=== PATIENT | male | born 1990 | race Caucasian/White ===

== ENCOUNTER 2018-05-05 09:29 | Emergency (ER) | payer MEDICARE ==
[~2018-05-05] VITALS: Ht 185.4 cm; Wt 92.0 kg
[~2018-05-05 09:29] MED LIST: ATIVAN0.5 MG OR; CEPHALEXIN500 MG OR; CLARITHROMYC500 M1 OR; HYDROCORT12 EX; LORTAB 5 OR; NO HOME MEDS; XANAX0.25 MG OR; ZOFRAN ODT8 MG OR
[2018-05-05 11:16] VITALS: BP 141/87
== END 2018-05-05 11:27 | disposition home or self-care (01) ==
LOC: ED 09:29
DX: Z20.2 Contact with and (suspected) exposure to infections with a predominantly sexual mode of transmission (principal); N50.811 Right testicular pain; Z91.19 Patient's noncompliance with other medical treatment and regimen

== ENCOUNTER 2018-12-17 07:04 | Emergency (ER) | payer MEDICARE ==
[~2018-12-17] VITALS: Ht 185.4 cm; Wt 100.0 kg
[2018-12-17] MEDS ORDERED: HYDROCORT0.51 EX (07:36)
[2018-12-17] MEDS ORDERED: ANUCORT-HC25 MG RE (07:36)
[2018-12-17] MEDS ORDERED: TORADOL PO (07:36)
[2018-12-17 07:41] VITALS: BP 116/67
== END 2018-12-17 07:46 | disposition home or self-care (01) ==
LOC: ED 07:04
DX: K64.4 Residual hemorrhoidal skin tags (principal); F20.9 Schizophrenia, unspecified

== ENCOUNTER 2019-02-04 07:41 | Emergency (ER) | payer MEDICARE ==
[~2019-02-04] VITALS: Ht 182.9 cm; Wt 109.0 kg
[~2019-02-04 07:41] MED LIST changes: +ANUCORT-HC25 MG RE; +HYDROCORT0.51 EX; +KLONOPIN0.5 MG PO; +MOTRIN400 MG PO; +TORADOL PO
[2019-02-04] MEDS ORDERED: BACTRIM DS1 TAB PO (08:05)
[2019-02-04] MEDS ORDERED: OMNICEF300 M1 PO (08:05)
[2019-02-04 08:09] LABS: HEMATOCRIT 39.2 % (39.0-50.0); HEMOGLOBIN 13.3 g/dl (14.0-18.0); IMMATURE GRANULOCYTES 0.2 % (0.0-5.0); MEAN CELL VOLUME 89.7 fL CALC (80.0-100.0); MEAN CORPUSCULAR HGB 30.4 pG CALC (26.0-32.0); MEAN CORPUSCULAR HGB CONC 33.9 g/L CALC (32.0-36.0); NEUT# 7.83 thou/uL (1.82-7.42); RED BLOOD COUNT 4.37 mill/uL (4.70-6.10); RED CELL DISTRI WIDTH 12.1 % (11.5-15.5)
[2019-02-04] MEDS ORDERED: INVEGA6 MG PO (08:22)
[2019-02-04 08:26] LABS: ALBUMIN 4.3 g/dL (3.2-5.0); ALKALINE PHOSPHATASE 85 u/l (38-126); ANION GAP 12 (6-22 (CALC)); BILIRUBIN, TOTAL 0.4 mg/dL (0.0-1.4); BUN 11 mg/dL (9-20); BUN/CREATININE RATIO 11 (12-20 (CALC)); CARBON DIOXIDE 26 mmol/l (22-30); CHLORIDE 104 mmol/l (95-108); CREATININE 1.1 mg/dL (0.7-1.3); GFR > 60 ML/MIN (>=60 (CALC)); GFR FOR AFR.AMER. > 60 ML/MIN (>=60 (CALC)); LIPASE 297 u/l (23-300); POTASSIUM 3.8 mmol/l (3.5-5.1); SGOT/AST 27 u/l (17-59); SODIUM 138 mmol/l (137-146); TOTAL PROTEIN 7.3 g/dL (6.3-8.2)
[2019-02-04] MEDS ORDERED: CITRATE OF MEGNESIA PO (09:12)
[2019-02-04 09:29] VITALS: BP 102/67
[2019-02-04 09:32] LABS: URINE BILIRUBIN - DIPSTICK NEGATIVE (NEGATIVE); URINE BLOOD DIPSTICK MODERATE (NEGATIVE); URINE COLOR YELLOW; URINE GLUCOSE - DIPSTICK NEGATIVE (NEGATIVE); URINE KETONE NEGATIVE (NEGATIVE); URINE LEUK ESTERASE NEGATIVE (NEGATIVE); URINE NITRITE - DIPSTICK NEGATIVE (Negative); URINE PH 5.5 (4.5-8.0); URINE PROTEIN - DIPSTICK NEGATIVE (NEG-TRACE); URINE SPECIFIC GRAVITY >=1.030; URINE UROBILINOGEN - DIPSTICK 0.2 E.U./dL (0.2)
[2019-02-04 09:41] LABS: URINE RBC 0-2 RBC/hpf (0-5)
== END 2019-02-04 09:29 | disposition home or self-care (01) ==
LOC: ED 07:41
PROVIDERS: Family Medicine
DX: R07.9 Chest pain, unspecified (principal); K59.00 Constipation, unspecified; L03.116 Cellulitis of left lower limb; S81.812D Laceration without foreign body, left lower leg, subsequent encounter; X58.XXXD Exposure to other specified factors, subsequent encounter; F20.9 Schizophrenia, unspecified; F41.8 Other specified anxiety disorders

== ENCOUNTER 2020-07-26 08:37 | Emergency (ER) | payer MEDICARE ==
[~2020-07-26] VITALS: Ht 182.9 cm; Wt 81.0 kg
[~2020-07-26 08:37] MED LIST changes: +BACTRIM DS1 TAB PO; +CITRATE OF MEGNESIA PO; +INVEGA6 MG PO; +OMNICEF300 M1 PO
[2020-07-26] MEDS ORDERED: ZPAK PO (09:06)
[2020-07-26] MEDS ORDERED: CLOTRIMAZOLE10 MG MT (09:06)
[2020-07-26 09:26] VITALS: BP 137/86
== END 2020-07-26 09:26 | disposition home or self-care (01) ==
LOC: ED 08:37
DX: B37.0 Candidal stomatitis (principal); E66.3 Overweight; F20.9 Schizophrenia, unspecified; F31.9 Bipolar disorder, unspecified; F41.9 Anxiety disorder, unspecified

== ENCOUNTER 2024-05-02 09:19 | Emergency (ER) | payer MEDICARE ==
[~2024-05-02] VITALS: Ht 182.9 cm; Wt 106.5 kg
[~2024-05-02 09:19] MED LIST changes: +ATIVAN0.5 MG PO; +CLOTRIMAZOLE10 MG MT; +RISPERIDONE2 MG PO; +ZPAK PO
[2024-05-02 09:28] VITALS: BP 124/93
[2024-05-02 09:30] VITALS: BP 122/92
[2024-05-02 10:00] VITALS: BP 99/72
[2024-05-02 10:25] VITALS: BP 113/71
[2024-05-02 10:33] VITALS: BP 118/74
[2024-05-02] MEDS ORDERED: PERMETHRIN5 % EX (10:37)
[2024-05-02] MEDS ORDERED: SULFAMETHOXAZOLE W/TRIMETHOPRI 1 COMBO TAB PO ONE (10:40)
[2024-05-02] MEDS ORDERED: PERMETHRIN TOP ONE (10:40)
[2024-05-02] MEDS ORDERED: CEPHALEXIN500 M1 PO (10:43)
[2024-05-02] MEDS ORDERED: CEPHALEXIN MONOHYDRATE 500 MG/CAP PO ONE (10:45)
[2024-05-02 10:58] VITALS: BP 118/74
== END 2024-05-02 10:59 | disposition home or self-care (01) ==
LOC: ED 09:19
DX: R21 Rash and other nonspecific skin eruption (principal); F20.9 Schizophrenia, unspecified; F41.9 Anxiety disorder, unspecified

== ENCOUNTER 2024-08-19 07:57 | Emergency (ER) | payer MEDICARE ==
[~2024-08-19] VITALS: Ht 182.9 cm; Wt 112.0 kg
[~2024-08-19 07:57] MED LIST changes: +CEPHALEXIN500 M1 PO; +PERMETHRIN5 % EX
[2024-08-19 08:07] VITALS: BP 131/87
[2024-08-19] MEDS ORDERED: CLINDAMYCIN HC150 MG PO (08:24)
[2024-08-19] MEDS ORDERED: Diph, Acellular Pertussis, Tet 0.5 ML/VIAL (Tdap) SDV IM ONE (08:25)
[2024-08-19] MEDS ORDERED: CLINDAMYCIN HCL 150 MG CAP PO ONE (08:25)
[2024-08-19] MEDS ORDERED: PROTONIX40 MG PO (08:25)
[2024-08-19 08:37] VITALS: BP 131/87
== END 2024-08-19 08:49 | disposition home or self-care (01) ==
LOC: ED 07:57
DX: L03.116 Cellulitis of left lower limb (principal); S90.912A Unspecified superficial injury of left ankle, initial encounter; W45.0XXA Nail entering through skin, initial encounter
CPT/HCPCS: 90715